=== PATIENT | male | born 1970 | race Caucasian/White ===

== ENCOUNTER 2018-12-23 10:26 | Emergency (ER) | payer BC ==
[2018-12-23] MEDS ORDERED: Sodium Chloride 0.9% 10 ML Syringe FLUSH PRN (10:54)
[2018-12-23] MEDS ORDERED: Sodium Chloride 0.9% 250 ML IV SCH (11:00)
[2018-12-23] MEDS: Sodium Chloride 0.9% 1,000 ML IV SCH (11:09)
--- NOTE | 2018-12-23 11:24 | EDM.PDOC ---
ED HPI GENERAL MEDICAL PROBLEM - General Chief Complaint: Chest Pain Stated Complaint: CHEST PAIN Time Seen by Provider: 12/23/18 10:32 Source of Information: Reports: Patient History Limitations: Reports: No Limitations - History of Present Illness INITIAL COMMENTS - FREE TEXT/NARRATIVE: Pt. presents to ER with complaints of L anterior chest pain/heaviness that started approx. 4 days ago. He also complains of feeling anxious, but attributes this to the chest pain that developed first. Pt. denies any shortness of breath. No diaphoresis. No nausea, vomiting, or diarrhea. Pt. states that he was doing some heavy exercise (dips) prior to the start of the discomfort. He states that the pain is always present, and is not made worse with deep breathing, movement, or palpation. Also, the patient states that he feel anxious and that he might be having a panic attack which he has had in the past. Pt. states that he has been drinking more heavily recently. He states that he drink approx. a pint of vodka every 2-4 days. He states that he doesn't feel he is dependent on alcohol. He states that he doesn't feel agitated or any more anxious than normal if he stops drinking. He also complains of numbness in the bottoms of his feet. Denies any paresthesia in his upper extremities. He denies any increased peripheral edema. Denies any fever or chills. No dysuria. Denies any rashes. No cough or chest congestion. Denies any abdominal pain. Onset: Today Onset Date: 12/23/18 Location: Reports: Chest, Lower Extremity, Left, Lower Extremity, Right, Generalized Quality: Reports: Ache, Pressure Associated Symptoms: Reports: Chest Pain. Denies: Confusion, Cough, cough w sputum, Diaphoresis, Malaise, Nausea/Vomiting, Rash, Shortness of Breath, Syncope Left Chest Pain Score (Numeric/FACES): 4 - Related Data Allergies Allergy/AdvReac Type Severity Reaction Status Date / Time levofloxacin [From Levaquin] Allergy Rash Verified 12/23/18 10:58 Home Meds: Home Meds . [No Known Home Meds] 12/23/18 [History] Past Medical History HEENT History: Reports: Impaired Vision Cardiovascular History: Reports: High Cholesterol Psychiatric History: Reports: Depression Social & Family History - Tobacco Use Smoking Status *Q: Former Smoker Used Tobacco, but Quit: Yes Month/Year Tobacco Last Used: 2016 - Alcohol Use Days Per Week of Alcohol Use: 4 Number of Drinks Per Day: 10 Total Drinks Per Week: 40 Date of Last Drink: 12/21/18 - Recreational Drug Use Recreational Drug Use: No ED ROS GENERAL - Review of Systems Review Of Systems: See Below Constitutional: Denies: Fever, Chills, Malaise, Weakness, Fatigue, Diaphoresis HEENT: Reports: No Symptoms Respiratory: Denies: Shortness of Breath, Wheezing, Cough, Sputum, Hemoptysis Cardiovascular: Reports: Chest Pain. Denies: Edema, Lightheadedness, Orthopnea , Palpitations, PND, Syncope Endocrine: Reports: No Symptoms GI/Abdominal: Reports: No Symptoms : Reports: No Symptoms Musculoskeletal: Reports: No Symptoms Skin: Reports: No Symptoms Neurological: Reports: Paresthesia (bottoms of feet) Psychiatric: Reports: Agitation, Anxiety Hematologic/Lymphatic: Reports: No Symptoms Immunologic: Reports: No Symptoms ED EXAM, GENERAL - Physical Exam Exam: See Below Exam Limited By: No Limitations General Appearance: Alert, WD/WN, Anxious Eye Exam: Bilateral Eye: EOMI, Normal Fundi, Normal Inspection, PERRL Throat/Mouth: Normal Inspection, Normal Lips, Normal Teeth, Normal Gums, Normal Oropharynx, Normal Voice, No Airway Compromise Head: Atraumatic, Normocephalic Neck: Normal Inspection, Supple, Non-Tender, Full Range of Motion Respiratory/Chest: No Respiratory Distress, Lungs Clear, Normal Breath Sounds, No Accessory Muscle Use, Chest Non-Tender Cardiovascular: Normal Peripheral Pulses, No Edema, No Gallop, No JVD, No Murmur , No Rub, Tachycardia Peripheral Pulses: 4+: Radial (R) GI/Abdominal: Soft, Non-Tender, No Distention, No Mass, Pelvis Stable (Male) Exam: Deferred Rectal (Males) Exam: Deferred Back Exam: Normal Inspection, Full Range of Motion Extremities: Normal Inspection, Normal Range of Motion Neurological: Alert, Oriented, CN II-XII Intact, Normal Cognition, Normal Gait, Normal Reflexes Psychiatric: Normal Affect, Normal Mood Skin Exam: Warm, Dry, Intact, Normal Color, No Rash Lymphatic: No Adenopathy EKG INTERPRETATION Rhythm: NSR [place]: Normal P-Wave: Present QRS: Normal ST-T: Normal QT: Normal Course - Vital Signs Last Recorded V/S: Last Vital Signs Temp 36.9 C 12/23/18 10:28 Pulse 102 H 12/23/18 11:37 Resp 19 12/23/18 11:37 BP 146/97 H 12/23/18 11:37 Pulse Ox 98 12/23/18 11:37 - Orders/Labs/Meds Orders: Active Orders 24 hr Category Date Time Status EKG Documentation Completion [RC] STAT Care 12/23/18 10:55 Active EKG Documentation Completion [RC] STAT Care 12/23/18 12:52 Active Sodium Chloride 0.9% [Normal Saline] 1,000 ml Med 12/23/18 11:15 Active IV ASDIRECTED Sodium Chloride 0.9% [Saline Flush] Med 12/23/18 10:54 Active 10 ml FLUSH ASDIRECTED PRN Peripheral IV Insertion Adult [OM.PC] Routine Oth 12/23/18 10:55 Ordered Medication Orders Sodium Chloride (Normal Saline) 1,000 mls @ 250 mls/hr IV ASDIRECTED SONDRA Last Admin: 12/23/18 11:09 Dose: 250 mls/hr Sodium Chloride (Saline Flush) 10 ml FLUSH ASDIRECTED PRN PRN Reason: Keep Vein Open Labs: Laboratory Tests 12/23/18 12/23/18 12/23/18 Range/Units 11:10 11:10 11:10 WBC 5.0 (4.0-10.0) x10^3/uL RBC 5.20 (4.5-6.0) x10^6/uL Hgb 16.4 (14.0-18.0) g/dL Hct 46.4 (40.0-52.0) % MCV 89.2 D (78.0-93.0) fL MCH 31.5 (26.0-32.0) pg MCHC 35.3 (32.0-36.0) g/dL RDW Coeff of Cristian 12.2 (10.0-15.0) % Plt Count 207 (130-400) x10^3/uL Neut % (Auto) 68.1 (50.0-80.0) % Lymph % (Auto) 24.9 L (25.0-50.0) % Page % (Auto) 6.0 (2.0-11.0) % Eos % (Auto) 0.6 (0.0-4.0) % Baso % (Auto) 0.4 (0.2-1.2) % PT 10.0 (10.0-12.8) SEC INR 0.9 L (2.0-3.5) D-Dimer, Quantitative (<=0.58) mg/LFEU Sodium 141 (69-191) mmol/L Potassium 3.8 (1.5-9.9) mmol/L Chloride 100 (54-184) mmol/L Carbon Dioxide 29 (21-32) mmol/L Anion Gap 15.8 (10-20) mmol/L BUN 14 (7-18) mg/dL Creatinine 1.2 (0.70-1.30) mg/dL Est Cr Clr Drug Dosing TNP Estimated GFR (MDRD) > 60 Glucose 128 H (74-106) mg/dL Calcium 9.1 (8.5-10.1) mg/dL Corrected Calcium 9.02 (8.5-10.1) mg/dL Phosphorus 3.1 (2.6-4.7) mg/dL Magnesium 1.8 (1.8-2.4) mg/dL Total Bilirubin 0.4 (0.2-1.0) mg/dL AST 12 L (15-37) U/L ALT 36 (16-63) U/L Alkaline Phosphatase 93 (46-116) U/L Troponin I < 0.017 (<=0.056) ng/mL C-Reactive Protein < 0.2 (<=0.9) mg/dL NT-Pro-B Natriuret Pep < 5 (<=125) pg/mL Total Protein 7.8 (6.4-8.2) g/dL Albumin 4.1 (3.4-5.0) g/dL Globulin 3.7 Albumin/Globulin Ratio 1.11 TSH, Ultra Sensitive 1.428 (0.358-3.74) uIU/mL 12/23/18 Range/Units 11:10 WBC (4.0-10.0) x10^3/uL RBC (4.5-6.0) x10^6/uL Hgb (14.0-18.0) g/dL Hct (40.0-52.0) % MCV (78.0-93.0) fL MCH (26.0-32.0) pg MCHC (32.0-36.0) g/dL RDW Coeff of Cristian (10.0-15.0) % Plt Count (130-400) x10^3/uL Neut % (Auto) (50.0-80.0) % Lymph % (Auto) (25.0-50.0) % Page % (Auto) (2.0-11.0) % Eos % (Auto) (0.0-4.0) % Baso % (Auto) (0.2-1.2) % PT (10.0-12.8) SEC INR (2.0-3.5) D-Dimer, Quantitative < 0.19 (<=0.58) mg/LFEU Sodium (69-191) mmol/L Potassium (1.5-9.9) mmol/L Chloride (54-184) mmol/L Carbon Dioxide (21-32) mmol/L Anion Gap (10-20) mmol/L BUN (7-18) mg/dL Creatinine (0.70-1.30) mg/dL Est Cr Clr Drug Dosing Estimated GFR (MDRD) Glucose (74-106) mg/dL Calcium (8.5-10.1) mg/dL Corrected Calcium (8.5-10.1) mg/dL Phosphorus (2.6-4.7) mg/dL Magnesium (1.8-2.4) mg/dL Total Bilirubin (0.2-1.0) mg/dL AST (15-37) U/L ALT (16-63) U/L Alkaline Phosphatase (46-116) U/L Troponin I (<=0.056) ng/mL C-Reactive Protein (<=0.9) mg/dL NT-Pro-B Natriuret Pep (<=125) pg/mL Total Protein (6.4-8.2) g/dL Albumin (3.4-5.0) g/dL Globulin Albumin/Globulin Ratio TSH, Ultra Sensitive (0.358-3.74) uIU/mL Meds: Medications Generic Name Dose Route Start Last Admin Trade Name Freq PRN Reason Stop Dose Admin Sodium Chloride 1,000 mls @ 250 mls/hr 12/23/18 11:15 12/23/18 11:09 Normal Saline IV 250 mls/hr ASDIRECTED SONDRA Administration Sodium Chloride 10 ml 12/23/18 10:54 Saline Flush FLUSH ASDIRECTED PRN Keep Vein Open Discontinued Medications Generic Name Dose Route Start Last Admin Trade Name Ramírez PRN Reason Stop Dose Admin Sodium Chloride 250 mls @ 250 mls/hr 12/23/18 11:00 Normal Saline IV ASDIRECTED SONDRA Lorazepam 1 mg 12/23/18 11:26 12/23/18 11:40 Ativan IVPUSH 12/23/18 11:27 1 mg STAT ONE Administration - Radiology Interpretation Free Text/Narrative:: Chest x-ray negative for acute pathology Departure - Departure Time of Disposition: 12:30 Disposition: Home, Self-Care 01 Condition: Good Clinical Impression: Chest pain, atypical, Dehydration after exertion - Discharge Information Instructions: Dehydration, Adult, [id number], Nonspecific Chest Pain, Easy-to -Read Referrals: Yany Marmolejo MD [Primary Care Provider] - Forms: ED Department Discharge Additional Instructions: Drink plenty of fluids. Rest. Use heat on your chest. Ibuprofen 600mg every 6 hours as needed for pain. Return to ER if your pain gets worse. Recheck in clinic in 10-14 days, sooner if not gradually improving. - Problem List Review Problem List Initiated/Reviewed/Updated: Yes - My Orders Last 24 Hours: My Active Orders 12/23/18 10:54 Sodium Chloride 0.9% [Saline Flush] 10 ml FLUSH ASDIRECTED PRN 12/23/18 10:55 EKG Documentation Completion [RC] STAT Peripheral IV Insertion Adult [OM.PC] Routine 12/23/18 11:15 Sodium Chloride 0.9% [Normal Saline] 1,000 ml IV ASDIRECTED 12/23/18 12:52 EKG Documentation Completion [RC] STAT - Assessment/Plan Last 24 Hours: My Active Orders 12/23/18 10:54 Sodium Chloride 0.9% [Saline Flush] 10 ml FLUSH ASDIRECTED PRN 12/23/18 10:55 EKG Documentation Completion [RC] STAT Peripheral IV Insertion Adult [OM.PC] Routine 12/23/18 11:15 Sodium Chloride 0.9% [Normal Saline] 1,000 ml IV ASDIRECTED 12/23/18 12:52 EKG Documentation Completion [RC] STAT
[2018-12-23] MEDS: LORazepam 2 MG/ML SDV IVPUSH ONE (11:40)
--- NOTE | 2018-12-23 11:40 | CR ---
[id number] RAD/RAD Chest PA or AP 1V EXAM: RAD Chest PA or AP 1V INDICATION: CHEST PAIN. COMPARISON: 2014. DISCUSSION: Cardiomediastinal silhouette is normal in size and contour. No infiltrate, effusion, pneumothorax, or edema. IMPRESSION: Negative examination of the chest. Chinmay Dhillon MD 12/23/18 1139 Thank you for allowing us to participate in the care of your patient.
[2018-12-23 11:48] LABS: CHLORIDE,CL 100 mmol/L (54-184); SODIUM,NA 141 mmol/L (69-191)
[2018-12-23 11:49] LABS: ANION GAP 15.8 mmol/L (10-20)
[2018-12-23 12:20] VITALS: BP 146/97; PULSE 102
== END 2018-12-23 13:23 | disposition home or self-care (01) ==
LOC: VM.ED 10:26
DX: R07.89 Other chest pain (principal); E86.0 Dehydration; Z88.1 Allergy status to other antibiotic agents; Z87.891 Personal history of nicotine dependence
CPT/HCPCS: 71045; 80053; 83735; 83880; 84100; 84443; 84484; 85025; 85379; 85610; 86140; 93005; 96361; 96374; 99285; J2060; J7030; 36415

== ENCOUNTER 2021-05-17 06:13 | Day surgery (SDC) | payer OTHER ==
[2021-05-17] MEDS ORDERED: Lactated Ringers 1,000 ML IV SCH (07:00)
[2021-05-17] MEDS ORDERED: fentaNYL 100 MCG/2 ML SDV ONE (07:43)
[2021-05-17] MEDS ORDERED: Propofol 200 MG/20 ML SDV ONE ×3 (07:43→08:11)
[2021-05-17 08:47] VITALS: BP 129/84; PULSE 77
== END 2021-05-17 09:24 | disposition home or self-care (01) ==
LOC: VM.SDS 06:13
PROVIDERS: ATTEND Student in an Organized Health Care Education/Training Program
DX: Z12.11 Encounter for screening for malignant neoplasm of colon (principal); D12.3 Benign neoplasm of transverse colon; D12.8 Benign neoplasm of rectum; G43.909 Migraine, unspecified, not intractable, without status migrainosus; G62.9 Polyneuropathy, unspecified; E78.5 Hyperlipidemia, unspecified; F32.A Depression, unspecified; Z87.891 Personal history of nicotine dependence; Z79.899 Other long term (current) drug therapy; Z88.8 Allergy status to other drugs, medicaments and biological substances
CPT/HCPCS: 00812; J2704; J3010; J7120

== ENCOUNTER 2021-11-01 07:16 | Day surgery (SDC) | payer OTHER ==
[2021-11-01] MEDS: Lactated Ringers 1,000 ML IV SCH (07:38)
[2021-11-01] MEDS ORDERED: Midazolam 1 MG/ML 2 ML SDV ONE (10:00)
[2021-11-01] MEDS ORDERED: fentaNYL 100 MCG/2 ML SDV ONE (10:11)
[2021-11-01 10:42] VITALS: BP 123/70; PULSE 84
== END 2021-11-01 11:00 | disposition home or self-care (01) ==
LOC: VM.SDS 07:16
PROVIDERS: ATTEND Student in an Organized Health Care Education/Training Program
DX: Z12.11 Encounter for screening for malignant neoplasm of colon (principal); E78.5 Hyperlipidemia, unspecified; I86.1 Scrotal varices; K21.9 Gastro-esophageal reflux disease without esophagitis; J30.9 Allergic rhinitis, unspecified; F32.A Depression, unspecified; G43.909 Migraine, unspecified, not intractable, without status migrainosus; G25.0 Essential tremor; G62.9 Polyneuropathy, unspecified; R31.29 Other microscopic hematuria; B96.81 Helicobacter pylori [H. pylori] as the cause of diseases classified elsewhere; Z79.899 Other long term (current) drug therapy; Z79.1 Long term (current) use of non-steroidal anti-inflammatories (NSAID); Z87.891 Personal history of nicotine dependence; Z98.890 Other specified postprocedural states; Z86.010 Personal history of colon polyps; Z88.1 Allergy status to other antibiotic agents
CPT/HCPCS: 00811; 45330; J2250; J3010; J7120